=== PATIENT | female | born 2000 | race Caucasian/White ===

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

== ENCOUNTER 2019-04-04 11:35 | Emergency (ER) | payer BC ==
[2019-04-04 12:22] VITALS: BP 124/79
--- NOTE | 2019-04-04 12:25 | UC ---
Ear Complaint HPI - HPI Summary HPI Summary: 19 y/o female presents to the urgent care c/o B/L ear pain and pressure w/ decrease hearing for the past 2 days. Pt reports pain is 6/10 and worse w/ blowing her nose. Las night she feels w/ chills and subjective fever, GREGG, sinus congestion w/ clear nasal discharge and fatigue . Pt w/ Hx of bipolar disorder. Pt has taken Tylenol PO to alleviate symptoms. Pt denies dizziness, SOB, chest pain, abdominal pain, anxiety, N/V/D, blood in her ears. Pt is UTD w /all vaccines for her age. - History of Current Complaint Chief Complaint: UCEar Stated Complaint: BILAT EAR PAIN Time Seen by Provider: 04/04/19 12:11 Hx Obtained From: Patient Hx Last Menstrual Period: 03/07/19 Onset/Duration: Gradual Onset, Lasting Days - 2 days, Still Present, Worse Since - today Severity Initially: Mild Severity Currently: Moderate Pain Intensity: 6 Pain Scale Used: 0-10 Numeric Aggravating Factors: Other - jawning Associated Signs/Symptoms: Positive: Hearing Loss - decrease hearing and pressure on both ears - Allergies/Home Medications Allergies/Adverse Reactions: Allergies Allergy/AdvReac Type Severity Reaction Status Date / Time No Known Allergies Allergy Verified 04/04/19 12:06 Home Medications: Home Medications Amphetamine MIXED SALTS TAB* [Adderall TAB*] 30 mg PO DAILY 04/04/19 [History Confirmed 04/04/19] Oral Contraceptive 1 tab PO DAILY 04/04/19 [History] Sertraline* [Zoloft*] 175 mg PO DAILY 04/04/19 [History Confirmed 04/04/19] PMH/Surg Hx/FS Hx/Imm Hx Previously Healthy: Yes - Pt denies PMHX Psychological History: Bipolar Disorder - Surgical History Surgical History: None - Family History Known Family History: Positive: Hypertension - Social History Occupation: Employed Full-time Lives: With Family Alcohol Use: None Substance Use Type: None Smoking Status (MU): Never Smoked Tobacco - Immunization History Most Recent Influenza Vaccination: March 2015 Vaccination Up to Date: Yes Review of Systems All Other Systems Reviewed And Are Negative: Yes Constitutional: Positive: Negative Skin: Positive: Negative Eyes: Positive: Negative ENT: Positive: Ear Ache - B/L ear pain w/ decrease hearing, Nasal Discharge - clear mild Respiratory: Positive: Negative Cardiovascular: Positive: Negative Gastrointestinal: Positive: Negative Genitourinary: Positive: Negative Motor: Positive: Negative Neurovascular: Positive: Negative Musculoskeletal: Positive: Negative Neurological: Positive: Headache - mild Psychological: Positive: Negative Is Patient Immunocompromised?: No Physical Exam - Summary Physical Exam Summary: Vital signs: reviewed General: well developed, well nourished female adoelscent sitting in the examining table w/o any apparent distress Skin: [place], warm and dry, no evidence of atopic dermatitis, psoriasis, seborrhea. HEENT: -Head: atraumatic, non tender; no scalp dermatitis. -Eyes: sclera and conjunctiva clear, PERRLA, EOMI -Ears: no pre- or postauricular lymphadenopathy or erythema;B/L external ear canals impacted w/ erythema unable to visaulize TM's. -Nose/Face: erythematous and edematous nasal mucosa with clear rhinorrhea, no frontal or maxillary sinus tender to palpation. -Mouth/Throat: Mucous membrane moist, posterior pharynx clear, no erythema or exudates. Neck: supple, FROM, nontender, no lymphadenopathy, no meningismus. Chest: Clear to auscultation, normal breath sounds Abd: soft, Bowel sounds active, Nontender. Back: no spinal or CVAT Neuro: A&O x4, GCS 15, no focal neuro deficits, normal behavior for age. Triage Information Reviewed: Yes Vital Signs: Initial Vital Signs Temp 99.3 F 04/04/19 12:12 Pulse 81 04/04/19 12:12 Resp 16 04/04/19 12:12 BP 124/79 04/04/19 12:12 Pulse Ox 100 04/04/19 12:12 Ear Complaint Course/Dx - Course Course Of Treatment: 19 y/o female presents to the urgent care c/o B/L ear pain and pressure w/ decrease hearing for the past 2 days. Pt reports pain is 6/10 and worse w/ blowing her nose. Las night she feels w/ chills and subjective fever, GREGG, sinus congestion w/ clear nasal discharge and fatigue . Pt w/ Hx of bipolar disorder. Pt has taken Tylenol PO to alleviate symptoms. Pt denies dizziness, SOB, chest pain, abdominal pain, anxiety, N/V/D, blood in her ears. Pt is UTD w /all vaccines for her age. Hx obtained. Pt w/ B/L external ear canals impacted w/ cerumen unable to visualize TM's and left anterior cervical and preauricular lymphadenopathy on examination. B/L ear irrigation ordered. Irrigation performed by Nurse. Pt tolerated well procedure w/o any adverse effect. Both external w/ erythema and yellowish purulent discharge, Both TMs injected w/ erythema, no light reflex, no perforation. Pt will be Rx for Otitis externa and Media. Pt Rx Amoxicillin PO and Cortisporin otic drops. Advised to take Ibuprofen PO for alleviate otalgia. Pt advised if not improvement of symptoms in 2-3 days to return to the clinic or f/u w/ her PCP for further treatment. Pt understood and agreed w/ plan of care. - Differential Dx/Diagnosis Differential Diagnosis/HQI/PQRI: Barotrauma, Cerumen Impaction, Otitis Externa, Otitis Media, Perforated TM Provider Diagnosis: Impacted cerumen of both ears, Bilateral otitis media, Acute otitis externa of both ears Discharge ED - Sign-Out/Discharge Documenting (check all that apply): Patient Departure - D/C home All imaging exams completed and their final reports reviewed: No Studies - Discharge Plan Condition: Stable Disposition: HOME Prescriptions: Amoxicillin PO (*) [Amoxicillin 875 MG (*)] 875 mg PO BID #20 tab Neomyc/Polym/HC 1% OTIC SUSP* [Cortisporin Otic Susp 1%*] 4 drop BOTH EARS TID # 1 btl Patient Education Materials: Ear Infection (ED) Forms: *Work Release Referrals: Kandis Graves MD [Primary Care Provider] - 3 Days Additional Instructions: 1- Please take the full course of the antibiotic to avoid resistance.Take yogurts w/ probiotics or Culturelle to protect your GI system 2-Please apply /cortisporin otic antibiotic on Both ears as directed to alleviate symptoms. 3-Take ibuprofen PO 600mg q6-8hrs prn after meals for ear pain. 4-If symptoms do not improve or worsen please f/u with your PCP in 3 days or return to the urgent care for further evaluation and treatment. - Billing Disposition and Condition Condition: STABLE Disposition: Home
== END 2019-04-04 13:02 | disposition home or self-care (01) ==
LOC: UCCORT 11:35
DX: H61.23 Impacted cerumen, bilateral (principal); H66.93 Otitis media, unspecified, bilateral; H60.503 Unspecified acute noninfective otitis externa, bilateral; F31.9 Bipolar disorder, unspecified; Z79.899 Other long term (current) drug therapy
CPT/HCPCS: 99213; G0463